=== PATIENT | male | born 1975 | race Caucasian/White ===

== ENCOUNTER 2017-12-09 09:44 | Emergency (ER) | payer BC ==
[~2017-12-09] VITALS: Ht 177.8 cm; Wt 99.8 kg
== END 2017-12-09 10:50 | disposition home or self-care (01) ==
LOC: ER 09:44
DX: L02.211 Cutaneous abscess of abdominal wall (principal)

== ENCOUNTER 2017-12-10 18:57 | Inpatient (IN) | payer BC ==
[~2017-12-10] VITALS: Ht 177.8 cm; Wt 99.8 kg
--- OUTSIDE RECORDS SUMMARY | 2017-12-10 18:59 | XMS REPORT | Continuity of Care Document ---
Author Author [facility] Organization [facility] Address [address] [place] [address] Phone Unavailable Care Team Providers Care Internal Medicine Physician Assistant Name Role Phone NO, PCP PCP Unavailable Insurance Providers Guarantor Jesse Milton Address [address] [place] [address] Email PT DECLINED [facility] Policy Number [id number] Subscriber's Name Jesse Milton Awilda Relationship 18 Self / Same As Patient Advance Directives Directive Response Recorded Date/Time Does the patient have an advance directive? No 12/09/17 10:11am If yes, is advance directive on file with [facility]? No 12/09/17 10:11am If not on file with [facility] will patient provide a copy? No 12/09/17 10:11am Do you have a Directive to Physician? No 12/09/17 10:11am Do you have a Medical Power of Computing Machine Operator? No 12/09/17 10:11am Do you have an out of hospital Do Not Resuscitate Order? No 12/09/17 10:11am Do you have any special needs we should be aware of? No 12/09/17 10:11am Do you have a support person here with you today? No 12/09/17 10:11am Did patient receive Notice of Privacy Practices? Yes 12/09/17 10:11am Did patient receive patient rights and responsibilities? Yes 12/09/17 10:11am Problems No problem information available. Medications No medication information available. Social History Smoking Status Start Date Stop Date Never Smoker Hospital Discharge Instructions No hospital discharge instruction information available. Plan of Care Discharge Date 12/09/17 10:50am Disposition HOME, SELF-CARE Condition at Discharge Stable Instructions/Education Provided Skin Abscess Forms Provided Work/School Excuse Prescriptions See Medication Section Additional Instructions/Education FOLLOW UP WITH PCP WARM COMPRESSES TAKE MEDS DIRECTED Functional Status No functional status information available. Allergies, Adverse Reactions, Alerts Allergen Type Severity Reaction Status Last Updated CIPROFLAXIN Allergy Unknown Active 12/09/17 Immunizations No immunization information available. Vital Signs Acute Vital Signs Vital Response Date/Time Height 5 ft 10 in 12/09/2017 9:45am Weight 220 lb 12/09/2017 9:45am Body Mass Index 31.6 kg/m^2 12/09/2017 9:45am Results No relevant diagnostic test, laboratory data and/or discharge summary information available. Procedures No procedure information available. Encounters Encounter Location Arrival/Admit Date Discharge/Depart Date Attending Provider Departed Emergency Room [facility] 12/09/17 9:44am 10:50am HUMZA WADE MD
[2017-12-10] MEDS ORDERED: SODIUM CHLORIDE 0.9% 1000ML 1,000 ML IV STA (21:52)
[2017-12-10] MEDS ORDERED: ONDANSETRON HCL INJ 2 MG/ML VIAL IV STA (21:52)
[2017-12-10] MEDS ORDERED: KETOROLAC TROMETHAMINE 30 MG/ML VIAL IV STA (21:52)
[2017-12-10] MEDS ORDERED: VANCOMYCIN 1GM/NS 250 ML 250 ML IV ONE (22:00)
[2017-12-10 22:40] LABS: BASOPHILS # (AUTO) 0.1 (0.0-0.1); BASOPHILS % 0.4 % (0.0-1.0); EOSINOPHILS # (AUTO) 0.2 (0.0-0.4); HEMATOCRIT 46.7 % (38.2-49.6); HEMOGLOBIN 15.8 g/dL (14.0-18.0); LYMPHOCYTES # (AUTO) 1.6 (1.0-3.2); LYMPHOCYTES % 10.8 % (18.0-39.1); MEAN CORPUSCULAR HEMOGLOBIN 30.9 pg (28-32); MEAN CORPUSCULAR HGB CONC 33.8 g/dL (31-35); MEAN CORPUSCULAR VOLUME 91.4 fL (81-99); MONOCYTES # (AUTO) 1.3 (0.2-0.8); MONOCYTES % 8.7 % (4.4-11.3); NEUTROPHILS # (AUTO) 11.3 (2.1-6.9); NEUTROPHILS % 78.5 % (38.7-80.0); PLATELET COUNT 218 x10e3/uL (140-360); RED BLOOD COUNT 5.11 x10e6/uL (4.3-5.7); RED CELL DISTRIBUTION WIDTH 12.3 % (11.7-14.4)
[2017-12-10 22:49] LABS: INR 1.05; PROTHROMBIN TIME 12.9 seconds (11.9-14.5)
[2017-12-10 22:58] LABS: ALANINE AMINOTRANSFERASE 17 IU/L (0-55); ALKALINE PHOSPHATASE 63 IU/L (40-150); ANION GAP 14.5 mmol/L (8-16); BLOOD UREA NITROGEN 15 mg/dL (7-26); BUN/CREATININE RATIO 13 (6-25); CALCIUM 8.9 mg/dL (8.4-10.2); CARBON DIOXIDE 23 mmol/L (22-29); CHLORIDE 99 mmol/L (98-107); CREATININE, SERUM 1.18 mg/dL (0.72-1.25); EST GLOMERULAR FILTRATION RATE > 60 ML/MIN (60-); GLUCOSE 83 mg/dL (74-118); POTASSIUM 3.5 mmol/L (3.5-5.1); SODIUM 133 mmol/L (136-145)
[2017-12-10] MEDS ORDERED: SODIUM CHLORIDE 0.9% 50ML 50 ML ONE (23:24)
[2017-12-10] MEDS ORDERED: IOPAMIDOL 370 MG/ML 200 ML INFUS..BTL INJ ONE (23:24)
--- NOTE | 2017-12-11 00:04 | Diagnostic Imaging Report ---
EXAM: CT ABDOMEN/PELVIS W DATE: 12/10/2017 9:52 PM INDICATION: \S\evaluate right lower quadrant abscess \S\[id number] \S\2326 \S.br\COMPARISON: None TECHNIQUE: The abdomen and pelvis were scanned using a multidetector helical scanner. Coronal and sagittal reformations were obtained. Routine protocol performed. IV Contrast: 100 ml Isovue 370 FINDINGS: LOWER THORAX: Mild bibasilar atelectasis. LIVER/BILIARY: No masses. No ductal dilatation. GALLBLADDER: Unremarkable SPLEEN: Unremarkable PANCREAS: Unremarkable ADRENALS: No nodules KIDNEYS: Symmetric perfusion. No enhancing masses. No hydronephrosis. GI TRACT: No distention, wall thickening or evidence of obstruction. Normal appendix. VESSELS: Unremarkable PERITONEUM/RETROPERITONEUM: No free air or fluid LYMPH NODES: No lymphadenopathy REPRODUCTIVE ORGANS/BLADDER: Unremarkable SOFT TISSUES: Moderate inflammatory changes along the right anterior abdominal wall subcutaneous fat with overlying skin thickening. Several locules of fluid without organized rim-enhancing collection. BONES: No suspicious bone lesions. IMPRESSION: Right anterior abdominal wall cellulitis/phlegmon. No organized/drainable collection or intra-abdominal extension. Signed by: Dr Katiana Vincent MD on 12/11/2017 12:01 AM
[2017-12-11] MEDS ORDERED: ONDANSETRON HCL INJ 2 MG/ML VIAL IV PRN (00:45)
[2017-12-11] MEDS ORDERED: SODIUM CHLORIDE FLUSH 10 ML SYR INJ PRN (00:45)
--- OUTSIDE RECORDS SUMMARY | 2017-12-11 00:51 | XMS REPORT ---
Author Author [facility] Address Unknown Phone Unavailable Care Team Providers Care Silvering Department Supervisor Name Role Phone GAYATHRI JESSE Unavailable Unavailable Problems This patient has no known problems. Allergies, Adverse Reactions, Alerts This patient has no known allergies or adverse reactions. Medications This patient has no known medications. Results Test Description Test Time Test Comments Text Results Atomic Results Result Comments CT ABDOMEN/PELVIS W [place] [address] Patient Name: JESSE CASAREZ MR #: [id number] : 1975 Age/Sex: 42/M Req #: [id number] Adm Physician: Ordered by: JESSE TRINH MD Report #: [id number] Location: ER Room/Bed: Procedure: [id number] CT/CT ABDOMEN/PELVIS W Exam Date: 12/10/17 Exam Time: 2325 REPORT STATUS: Signed EXAM: CT ABDOMEN/ PELVIS W DATE: 12/10/2017 9:52 PM INDICATION: S evaluate right lower quadrant abscess S [id number] S 2325 TECHNIQUE: The abdomen and pelvis were scanned using a multidetector helical scanner. Coronal and sagittal reformations were obtained. Routine protocol performed. IV Contrast: 100 ml Isovue 370 FINDINGS: LOWER THORAX: Mild bibasilar atelectasis. LIVER /BILIARY: No masses. No ductal dilatation. GALLBLADDER: Unremarkable SPLEEN: Unremarkable PANCREAS: Unremarkable ADRENALS: No nodules KIDNEYS: Symmetric perfusion. No enhancing masses. No hydronephrosis. GI TRACT: No distention, wall thickening or evidence of obstruction. Normal appendix. VESSELS: Unremarkable PERITONEUM/RETROPERITONEUM: No free air or fluid LYMPH NODES: No lymphadenopathy REPRODUCTIVE ORGANS/BLADDER: Unremarkable SOFT TISSUES: Moderate inflammatory changes along the right anterior abdominal wall subcutaneous fat with overlying skin thickening. Several locules of fluid without organized rim-enhancing collection. BONES: No suspicious bone lesions. IMPRESSION: Right anterior abdominal wall cellulitis/phlegmon. No organized/drainable collection or intra-abdominal extension. Signed by: Dr Satinder Vincent MD on 12/11/2017 12:01 AM Dictated By: SATINDER VINCENT MD 0001 Transcribed By: JED on 12/11/17 0001 COPY TO: JESSE TRINH MD
[2017-12-11] MEDS ORDERED: VANCOMYCIN 1GM/NS 250 ML 250 ML IV SCH ×2 (01:00→10:00)
[2017-12-11 01:45] VITALS: BP 152/92
[2017-12-11] MEDS: MORPHINE SULFATE 2 MG/ML SYR IV PRN ×2 (02:36→06:38)
[2017-12-11 03:23] VITALS: BP 152/92
[2017-12-11] MEDS ORDERED: BACTRIM DS TAB1 EACH PO (03:51)
[2017-12-11] MEDS ORDERED: TYLENOL WITH C1 EACH PO (03:51)
[2017-12-11 04:00] VITALS: BP 117/65
[2017-12-11] MEDS ORDERED: CLINDAMYCIN PHOS 900MG/ D5W 50 50 ML IV SCH (06:00)
[2017-12-11] MEDS ORDERED: SODIUM CHLORIDE 0.9% 250ML 250 ML ONE ×2 (06:32→21:03)
[2017-12-11] MEDS: KETOROLAC TROMETHAMINE 30 MG/ML VIAL IV PRN ×3 (09:55→22:12)
[2017-12-11 11:50] VITALS: BP 126/72
[2017-12-11] MEDS ORDERED: VANCOMYCIN 1GM/NS 250 ML 500 ML IV SCH (14:00)
--- NOTE | 2017-12-11 15:08 | Consultation ---
DATE OF CONSULTATION: INFECTIOUS DISEASE CONSULTATION REASON FOR CONSULTATION: Abdominal wall abscess and cellulitis. HISTORY OF PRESENT ILLNESS: This is a patient who is a very pleasant 42-year-old white male. Denies any past medical history. He had some hair follicles which came to his abdomen, but he has been playing with them recently. The patient has significant redness and swelling; so, the patient was started on IV antibiotic and Infectious Disease was consulted. The patient is currently lying in bed comfortably. He said this started with a small lesion but it became quite red and hot with redness and swelling. There is no drainage yet, but he is saying that it is a little bit better today than yesterday. PAST MEDICAL HISTORY: He denies, but he did have hair follicles before. PAST SURGICAL HISTORY: He denies. ALLERGIES: NKA. SOCIAL HISTORY: There is no smoking, drug abuse, alcohol abuse. FAMILY HISTORY: Unremarkable. PHYSICAL EXAMINATION GENERAL: He is currently alert, oriented, does not seem to be in acute distress. VITAL SIGNS: Stable. Currently afebrile. HEENT: He does not appear icteric. NECK: Supple. CHEST: Clear. HEART: S1 and S2. No S3 or S4, no murmur. ABDOMEN: Soft. He does have redness and swelling and induration, and it is about 4 x 4 cm. IMPRESSION: Cellulitis, early abscess. Will put him on vancomycin 1.5 q.12. I would suggest surgical evaluation for I\T\D. Obtain wound culture for sensitivity and will follow. Job#: [id number] EV
[2017-12-11 16:00] VITALS: BP 139/79
[2017-12-11 20:00] VITALS: BP 151/86
[2017-12-11] MEDS: VANCOMYCIN HCL 1.5 GM in SODIUM CHLORIDE 0.9% 250ML 300 ML IV SCH (21:11)
[2017-12-12] VITALS (7 sets, daily range): BP systolic 134–165; BP diastolic 73–94
[2017-12-12] MEDS: KETOROLAC TROMETHAMINE 30 MG/ML VIAL IV PRN ×2 (05:58→18:35)
--- NOTE | 2017-12-12 08:03 | Consultation ---
DATE OF CONSULTATION: December 12, 2017 REFERRING PHYSICIAN: Dr. Weaver HISTORY OF PRESENT ILLNESS: Patient is 42-year-old male who presents with complaints of pain and swelling in the right side of his abdomen. He states he has had this for several days. He is admitted to the hospital, started on IV antibiotics. CT of the abdomen was done, which revealed inflammation within the soft tissues with small fluid collections. Patient has not had similar problems in the past. He has not had any fever. PAST MEDICAL HISTORY: Significant for hypertension. He has had previous hernia repair, umbilical hernia and inguinal hernia with mesh. ALLERGIES: HE HAS ALLERGY TO CIPRO. MEDICATIONS: There are no home medications. FAMILY HISTORY: Noncontributory. SOCIAL HISTORY: The patient does not smoke cigarettes. Occasionally drinks alcohol. REVIEW OF SYSTEMS: As stated above, otherwise was negative. PHYSICAL EXAMINATION: GENERAL: The patient is awake and alert, in no distress. VITAL SIGNS: Normal. HEENT: Revealed no scleral icterus. NECK: Has no masses. LUNGS: Equal breath sounds are clear bilaterally. CARDIAC: Regular rate and rhythm with no murmur. ABDOMEN: Soft. There is an area of erythema, induration, and swelling in the right side of the abdomen, which is approximately 6 cm in diameter where the central area skin has become devitalized. EXTREMITIES: Warm. There is no edema. Pulses are palpable. NEUROLOGIC: Grossly intact. LAB TESTS: The white blood cell count is 14.4. Hemoglobin and hematocrit are normal. Chemistries are essentially normal. ASSESSMENT: Paeeu-yrn-bipk-old male with abscess and cellulitis in right side of the abdomen. He will best be treated with drainage of the abscess which I plan to schedule to be done in the operating room later this morning. Procedure was explained to the patient including risks, benefits, and alternatives. He understands the procedures, he had the opportunity to ask questions. Thank you for asking me to see Karine. Job#: [id number]
[2017-12-12] MEDS: VANCOMYCIN HCL 1.5 GM in SODIUM CHLORIDE 0.9% 250ML 300 ML IV SCH ×2 (09:07→21:45)
[2017-12-12] MEDS ORDERED: ONDANSETRON HCL INJ 2 MG/ML VIAL IV PRN (12:45)
[2017-12-12] MEDS ORDERED: HYDROCODONE/APAP 5MG-325MG TAB PO PRN (12:45)
--- NOTE | 2017-12-12 14:05 | Operative Report ---
DATE OF PROCEDURE: December 12, 2017 PREOPERATIVE DIAGNOSIS: Abdominal wall abscess. POSTOPERATIVE DIAGNOSIS: Abdominal wall abscess. PROCEDURE PERFORMED: Incision and drainage of complex abdominal wall abscess. WOODS OVERSEER: None. ANESTHESIA: General. INDICATIONS AND FINDINGS: Patient is a 42-year-old male who presented with pain and swelling in the right side of the abdomen. At surgery there was a multiloculated abscess within the subcutaneous tissue containing approximately 20 mL of purulent fluid. Abscess was found to track superiorly, inferiorly and medially with sinus tracts which were opened. TECHNIQUE: After adequate general anesthesia with patient in supine position, the abdomen was prepped and draped in sterile fashion with Aleksandr solution. A transverse incision was made over the area of swelling and abscess cavity entered. About 20 mL of purulent fluid was drained. There were 2 separate large loculations which were opened up, and then there were sinus tracts which extended superiorly, medially and inferiorly. All these were opened up to provide adequate drainage. The abscess was irrigated with saline. A sample of the purulent fluid was taken for culture and sensitivity. Hemostasis was seen to be adequate. The abscess cavity was then packed open with 1/2 inch iodoform gauze and sterile dressing applied. The patient tolerated the procedure well. Estimated blood loss was 10 mL. There were no complications. All counts were correct. Patient was taken to the recovery room in satisfactory condition. Job#: [id number] EV cc:YANET BELLE MD
[2017-12-12] MEDS ORDERED: ONDANSETRON HCL INJ 2 MG/ML VIAL ONE (14:42)
[2017-12-12] MEDS ORDERED: KETOROLAC TROMETHAMINE 30 MG/ML VIAL ONE (14:42)
[2017-12-12] MEDS ORDERED: LIDOCAINE HCL 2% LOCAL INJ 5 ML SDV VIAL INJ ONE (14:42)
[2017-12-12] MEDS ORDERED: SEVOFLURANE INHAL SOLN 250 ML PEN BTL ONE (14:42)
[2017-12-12] MEDS ORDERED: PROPOFOL IV EMULSION 10 MG/ML 20 ML VIAL ONE (14:42)
[2017-12-12] MEDS ORDERED: FENTANYL CITRATE/PF 100MCG/2 ML INJ ONE (18:03)
[2017-12-12] MEDS ORDERED: MIDAZOLAM HCL 2 MG/2 ML VIAL ONE (18:03)
[2017-12-13] VITALS (8 sets, daily range): BP systolic 134–192; BP diastolic 82–113
[2017-12-13] MEDS: KETOROLAC TROMETHAMINE 30 MG/ML VIAL IV PRN ×3 (02:56→20:06)
[2017-12-13] MEDS: VANCOMYCIN HCL 1.5 GM in SODIUM CHLORIDE 0.9% 250ML 300 ML IV SCH ×2 (10:39→22:50)
[2017-12-13] MEDS ORDERED: CLONIDINE HCL 0.1 MG TAB PO PRN (15:45)
[2017-12-14] VITALS: BP 157/91
[2017-12-14 04:00] VITALS: BP 129/80
[2017-12-14 07:10] VITALS: BP 165/91
[2017-12-14 08:00] VITALS: BP_SYST 122; BP_SYST 165; BP_DIAS 75; BP_DIAS 91
[2017-12-14] MEDS ORDERED: LOSARTAN POTASSIUM 100 MG TAB PO SCH (09:00)
[2017-12-14] MEDS: VANCOMYCIN HCL 1.5 GM in SODIUM CHLORIDE 0.9% 250ML 300 ML IV SCH (10:02)
[2017-12-14 12:00] VITALS: BP 155/76
[2017-12-14 16:00] VITALS: BP 164/95
--- NOTE | 2017-12-14 16:10 | Discharge Summary ---
Mr. Milton is a 42-year-old man with no prior medical history who came to the emergency room with right-sided abdominal wall erythema and swelling. He was found to have an abdominal wall abscess. He underwent incision and drainage and package of the abscess. Wound cultures are positive for MRSA. PHYSICAL EXAMINATION GENERAL: Today, the patient is awake and alert. He wants to go home. VITAL SIGNS: Temperature 96.1, blood pressure 165/91. HEART: Regular rate. LUNGS: Poor inspiratory effort. ABDOMEN: Soft. Today, the packing was changed. Potassium 3.5, creatinine 1.18, white count 14.4, hemoglobin 16.8. DISCHARGE DIAGNOSES 1. Abdominal wall abscess, status post incision and drainage, positive methicillin-resistant Staphylococcus aureus. 2. Hypertension. PLAN: Await for infectious disease and see if we can send the patient home with IV antibiotics or will he be able to go home with p.o. antibiotics. We are going to give him medication for his blood pressure. He is discharged and he needs to follow up with me in one week and with Dr. Rose as directed by him. All of this was discussed with the patient and at bedside. All questions were answered to his satisfaction. YANET BELLE MD Job#: [id number]
[2017-12-14] MEDS ORDERED: DOXYCYCLINE HY100 MG PO (18:11)
[2017-12-14] MEDS ORDERED: LOSARTAN POTAS100 MG PO (18:13)
== END 2017-12-14 18:53 | disposition home or self-care (01) | DRG 581 ==
LOC: ER 18:57 → ERHOLD 12-11 00:48 → MED/SURG3 12-11 01:30
PROVIDERS: ADMIT Internal Medicine; ATTEND Internal Medicine
PROC: 0W9F0ZZ Drainage of Abdominal Wall, Open Approach (ICD-10-PCS; principal; 2017-12-12 12:11)
DX: L02.211 Cutaneous abscess of abdominal wall (principal); I10 Essential (primary) hypertension; B95.62 Methicillin resistant Staphylococcus aureus infection as the cause of diseases classified elsewhere; Z53.29 Procedure and treatment not carried out because of patient's decision for other reasons
CPT/HCPCS: 36415; 74177; 80053; 80202; 82948; 85025; 85610; 85730; 87040; 87071; 87075; 87186; 87205; 96360; 96367; 96374; 96376; 99284; J1885; J2001; J2250; J2270; J2405; J3370; J7030; J7050; Q9967